=== PATIENT | male | born 1975 | race Two or more races ===

== ENCOUNTER 2020-05-17 21:49 | Emergency (ER) ==
[2020-05-17 21:59] VITALS: BP 149/81
[2020-05-17 23:51] LABS: A TYPE INFLUENZA AG NEGATIVE (NEGATIVE); B INFLUENZA AG NEGATIVE (NEGATIVE)
== END 2020-05-18 04:30 | disposition left against medical advice (07) ==
LOC: ER 21:49
DX: Z53.21 Procedure and treatment not carried out due to patient leaving prior to being seen by health care provider (principal)
CPT/HCPCS: 87804

== ENCOUNTER 2020-05-20 14:18 | Emergency (ER) | payer MEDICAID ==
--- NOTE | 2020-05-20 15:36 | ER Document Report ---
ED General - General Chief Complaint: Fever Stated Complaint: FEVER/CHILLS/SOB/DIARRHEA/MUSCLE PAIN Time Seen by Provider: 05/20/20 15:01 Primary Care Provider: [facility] [Provider Group] - Follow up in 1 week - [facility] Notes: 45-year-old male to the emergency department with complaints of possible Covid exposure. He states that he started to have symptoms of cough, body aches, chills, subjective fevers, sore throat yesterday. 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 He would like to have testing here today. He denies any chest pain, shortness of breath, nausea, vomiting, diarrhea. The patient was evaluated during the global COVID 19 pandemic, and that diagnosis was suspected/considered upon their initial presentation. Their evaluation, treatment, and testing was consistent with current guidelines for patients who present with complaints or symptoms that may be related to COVID-19. - Related Data Allergies/Adverse Reactions: No Known Allergies Allergy (Unverified 05/17/20 22:53) Home Medications: pt has been out of lisinopril, atorvastatin, glipizide, metformin [facility] for 1 month due to no rx and recent move from [facility]. Past Medical History - General Information source: Patient - Social History Smoking Status: Never Smoker Chew tobacco use (# tins/day): No Frequency of alcohol use: None Drug Abuse: None Family History: Reviewed & Not Pertinent Patient has homicidal ideation: No - Past Medical History Cardiac Medical History: Reports: Hx Hypercholesterolemia, Hx Hypertension Endocrine Medical History: Reports: Hx Diabetes Mellitus Type 2 Past Surgical History: Reports: Hx Cardiac Surgery - pericardial window, Hx Orthopedic Surgery - rt 2nd toe amputation Review of Systems - Review of Systems Constitutional: Chills, Fever EENT: Throat pain Cardiovascular: denies: Chest pain, Palpitations, Heart racing, Dyspnea, Syncope, Dizziness Respiratory: Cough. denies: Short of breath Gastrointestinal: denies: Abdominal pain, Diarrhea, Nausea, Vomiting Genitourinary: denies: Frequency, Flank pain Musculoskeletal: Muscle pain - body aches Skin: No symptoms reported Hematologic/Lymphatic: No symptoms reported Neurological/Psychological: No symptoms reported -: Yes All other systems reviewed and negative Physical Exam - Vital signs Vitals: Temp Pulse Resp BP Pulse Ox 98.2 F 87 18 111/70 95 05/20/20 14:23 05/20/20 14:23 05/20/20 14:23 05/20/20 14:23 05/20/20 14:23 Interpretation: Normal - Notes Notes: PHYSICAL EXAMINATION: GENERAL: Well-appearing, well-nourished and in no acute distress. HEAD: Atraumatic, normocephalic. EYES: Pupils equal round and reactive to light, extraocular movements intact, sclera anicteric, conjunctiva are normal. ENT: nares patent, oropharynx clear without exudates. Moist mucous membranes. TMs clear bilaterally. Airway is grossly patent. NECK: Normal range of motion, supple without lymphadenopathy LUNGS: Breath sounds clear to auscultation bilaterally and equal. No wheezes rales or rhonchi. Hacking dry cough. Patient is not in respiratory distress HEART: Regular rate and rhythm without murmurs ABDOMEN: Soft, nontender, normoactive bowel sounds. No guarding, no rebound. No masses appreciated. EXTREMITIES: Normal range of motion, no pitting or edema. No cyanosis. NEUROLOGICAL: No focal neurological deficits. Moves all extremities spontaneously and on command. PSYCH: Normal mood, normal affect. SKIN: Warm, Dry, normal turgor, no rashes or lesions noted. Course - Re-evaluation Re-evalutation: Impression: Viral upper respiratory infection that is concerning for COVID-19. Patient had a Covid exposure. Went ahead and tested him. He is not in any sort of respiratory distress. Will send home with medicines to aid in his symptomatic relief. He has been encouraged to return immediately if he worsens. Patient agrees with the plan. - Vital Signs Vital signs: Temp Pulse Resp BP Pulse Ox 98.1 F 84 16 112/74 96 05/20/20 15:45 05/20/20 15:45 05/20/20 15:45 05/20/20 15:45 05/20/20 15:45 - Laboratory Laboratory results interpreted by me: 05/20/20 15:00 COVID-19 ([facility]) DETECTED A - Diagnostic Test Radiology reviewed: Image reviewed, Reports reviewed Discharge - Discharge Clinical Impression: Viral upper respiratory illness, Suspected COVID-19 virus infection Condition: Stable Disposition: HOME, SELF-CARE Instructions: COVID-19 Guidance for Persons Under Investigation, Upper Respiratory Illness ([facility]) Additional Instructions: Take medicines as prescribed. Return if you have worsening symptoms. Follow-up with your primary care doctor in 10 days. You must quarantine until you have the results of the COVID-19 test. If you are positive you need to quarantine for 2 weeks. As a person under investigation for COVID-19, [facility], division of public health advises you to adhere to the following guidance until your test results are reported to you. If your test result is positive, you will receive additional information from your provider and your local health department at that time. Remain at home until you are cleared by the healthcare provider public health authorities. Keep a log of visitors to your home and notify any visitors to your home of your isolation status. If you plan to move to a new address or leave the country, notify the local health department and your County. Call your doctor or seek care if you have an urgent medical need. Before seeking medical care, call ahead to get instructions from the provider before arriving at the medical office, clinic, or hospital. Notify them that you are being tested for the virus that causes COVID-19 so that arrangements can be made, as necessary, to prevent transmission to others in the healthcare setting. Next, notify the local health department and your County. If a medical emergency arises and you need to call 911, informed the first resp onders that you are being tested for the virus that causes COVID-19. Next, notified the local health department and your County. Prescriptions: Ondansetron [Zofran Odt 4 mg Tablet] 1 - 2 tab PO Q4HP PRN #10 tab.rapdis PRN Reason: Benzonatate [Tessalon Perles 100 mg Capsule] 100 mg PO Q8HP PRN #40 capsule PRN Reason: Albuterol Sulfate [Albuterol Sulfate Hfa] 2 puff IH Q4H #1 hfa.aer.ad Forms: Return to Work Referrals: [facility] [Provider Group] - Follow up in 1 week
[2020-05-20 15:59] LABS: A TYPE INFLUENZA AG NEGATIVE (NEGATIVE); B INFLUENZA AG NEGATIVE (NEGATIVE)
[2020-05-20 16:07] VITALS: BP 112/74
== END 2020-05-20 15:45 | disposition home or self-care (01) ==
LOC: ER 14:18
DX: U07.1 COVID-19 (principal); J06.9 Acute upper respiratory infection, unspecified; R50.9 Fever, unspecified; R06.02 Shortness of breath; R19.7 Diarrhea, unspecified; M79.10 Myalgia, unspecified site; Z20.828 Contact with and (suspected) exposure to other viral communicable diseases; R05 Cough; Z79.899 Other long term (current) drug therapy; Z79.84 Long term (current) use of oral hypoglycemic drugs; I10 Essential (primary) hypertension; E11.9 Type 2 diabetes mellitus without complications
CPT/HCPCS: 99283; 87635; 87804; C9803